=== PATIENT | female | born 1975 | race Caucasian/White ===

== ENCOUNTER 2017-08-21 08:48 | Outpatient (CLI) | payer BC | END 2017-08-21 08:49 | disposition home or self-care (01) | LOC: BICMAMMO 08:48 | PROVIDERS: ATTEND Obstetrics & Gynecology | DX: Z12.31 Encounter for screening mammogram for malignant neoplasm of breast (principal) | CPT/HCPCS: 77063; 77067 ==

== ENCOUNTER 2018-05-31 08:37 | Day surgery (SDC) | payer BC ==
[2018-05-28 13:59] VITALS: BMI 26.6
[2018-05-31 09:33] LABS: #Eosinphils 0.3 thou/uL (0.0-0.7); #Lymphocytes 1.5 thou/uL (1.20-3.40); #Monocytes 0.6 thou/uL (0.11-0.59); #Neutrophils 5.7 thou/uL (1.40-6.50); %Basophils 0.5 % (0.0-1.0); %Eosinophils 3.8 % (0.0-10.0); %Lymphocytes 18.4 % (21.0-51.0); %Monocytes 7.4 % (0.0-10.0); %Neutrophils 69.9 % (42.0-75.0); Hemoglobin 13.8 g/dL (12.0-16.0); Mean Corpuscular HGB CONC 31.7 g/dL (32.0-36.0); Mean Corpuscular Hemoglobin 28.5 pg (27.0-31.0); Mean Corpuscular Volume 89.9 fL (78.0-98.0); Mean Platelet Volume 6.9 fL (7.4-10.4); Platelet Count 249 thou/uL (130-400); RBC Distribution Width 12.5 % (11.5-14.5); Red Blood Cell (RBC) Count 4.83 mill/uL (4.20-5.40); White Blood Cell (WBC) Count 8.1 thou/uL (4.8-10.8)
[2018-05-31] MEDS ORDERED: Fentanyl 100 MCG/2 ML VIAL ONE ×2 (09:49→12:30)
[2018-05-31] MEDS ORDERED: Midazolam HCl 2 mg/2 ml Vial ONE (09:49)
[2018-05-31 09:54] LABS: Anion Gap 13 mmol/L (10-20); BUN (Urea Nitrogen) 15 mg/dL (7.0-18.7); Calc. Creatinine Clearance 129 mL/min (70-130); Calcium 9.2 mg/dL (7.8-10.44); Carbon Dioxide 24 mmol/L (22-29); Chloride 106 mmol/L (98-107); Estimated GFR-MDRD Greater than 90; Glucose 96 mg/dL (70-105); Potassium 4.8 mmol/L (3.5-5.1); Sodium 138 mmol/L (136-145)
[2018-05-31] MEDS ORDERED: Ropivacaine 0.2% 550 ML 550 ML NERVE BLCK SCH (10:14)
[2018-05-31] MEDS ORDERED: Zolpidem Tartrate 5 MG TAB PO PRN (10:14)
[2018-05-31] MEDS ORDERED: traMADol HCl 50 MG TAB PO PRN ×2 (10:14)
[2018-05-31] MEDS ORDERED: Promethazine HCl 25 MG/ML VIAL IM PRN (10:14)
[2018-05-31] MEDS ORDERED: Ondansetron PF 4 MG/2 ML Vial IVP PRN (10:14)
[2018-05-31] MEDS ORDERED: Ketorolac Tromethamine 30 MG/ML VIAL IVP PRN (10:14)
[2018-05-31] MEDS ORDERED: Fentanyl 100 MCG/2 ML VIAL IV PRN (10:18)
[2018-05-31] MEDS ORDERED: Meperidine HCl/PF 25 MG/ML VIAL ONE (14:36)
[2018-05-31] MEDS ORDERED: Ropivacaine 0.5% HCl/PF (150 MG/30 ML VIAL) ONE (14:46)
[2018-05-31] MEDS ORDERED: Dexamethasone 20 MG/5 ML VIAL ONE (15:18)
[2018-05-31] MEDS ORDERED: Ondansetron PF 4 MG/2 ML Vial ONE (15:18)
[2018-05-31] MEDS ORDERED: Ketorolac Tromethamine 30 MG/ML VIAL ONE (15:18)
[2018-05-31] MEDS ORDERED: Lidocaine 1% PF 5 ML VIAL ONE (15:18)
[2018-05-31] MEDS ORDERED: Rocuronium Bromide 10 MG/ML (10ML VIAL) ONE (15:18)
[2018-05-31] MEDS ORDERED: PROPOFOL 200 MG/20 ML VIAL ONE (15:18)
[2018-05-31] MEDS ORDERED: traMADol HCl 50 MG TAB ONE (15:51)
--- NOTE | 2018-06-01 10:38 | OP ---
DATE OF PROCEDURE: 05/31/2018 PREOPERATIVE DIAGNOSIS: Left knee status post patellar dislocation and injury to the MCL. POSTOPERATIVE DIAGNOSIS: Left knee status post patellar dislocation and injury to the MCL. PROCEDURES PERFORMED: 1. Left knee arthroscopy with removal of loose bodies. 2. Open repair of medial patellofemoral ligament and medial retinaculum onto the patella. 3. Open repair of superficial medial collateral ligament and posteromedial capsule on the femur. RELIGION PROFESSOR: Josemanuel Pat PA-C. BLOOD LOSS: Minimal. COMPLICATIONS: None. ANESTHESIA: She did have a general anesthetic. She also had a block. IMPLANTS: We used a two small titanium anchors into the patella to repair the medial patellofemoral ligament and we used a 4.75 BioComposite SwiveLock device with sutures to repair the superficial MCL and the posteromedial capsule. DISPOSITION: She did go to recovery room in stable condition. INDICATIONS: A 43-year-old female, who had an event where she dislocated her patella and this occurred on Thursday. I saw the patient on Thursday and evaluated the leg. We obtained an MRI scan, which showed her to have significant injury from her dislocation with multiple loose bodies in the joint as well as what appeared to be trauma to the medial patellofemoral ligament on the femur as well as the patella and then a full-thickness injury to the medial collateral off the femur approximately as well. DESCRIPTION OF PROCEDURE: After all verbal consent forms were explained and signed, she was taken to the operative room and at this time was given general anesthetic. Once the level of anesthesia was appropriate, exam under anesthesia commenced and she had increased laxity to a valgus stress compared to the other side, but did not open or have any count puckering noted. This was felt to be secondary to the deep MCL being intact. The patient did have a subluxatable patella. Tourniquet was then placed on the left thigh. Leg was placed in arthroscopic leg monzon. It was then prepped and draped in standard surgical fashion. The limb was exsanguinated and then tourniquet was taken up to 300 mmHg. Inferolateral portal was established. Scope was placed into the knee joint. We then spent a couple of minutes washing out all the blood from the trauma in order to be able to visualize inside the knee joint. A medial working portal was then made using a needle localization technique. We then went to the notch. The ACL and PCL were probed, found to be intact. Medial compartment was intact. The lateral compartment showed some significant fissuring of the lateral tibial plateau and some cartilaginous loose bodies were also noted in the lateral compartment. These were removed. No other treatment was needed. Popliteus tendon was intact. The trochlea was in pretty good condition. The patella obviously has an area of hemorrhage on the distal and distal medial aspect of the patella, and there were multiple cartilaginous and bony loose bodies. The loose pieces were removed with a grasper and shaver. We then placed the needle to porfirio the area of injury. Over the lateral femoral condyle, significant trauma was noted with an impaction fracture and hematoma was removed with to make sure there were no bony loose bodies. Once this was done, we then removed the scope and drained the knee. We then made a longitudinal incision just where our needle had marked the area of injury for the patella. We went down through skin and subcutaneous tissue. The Bovie was used to clean any brisk venous bleeding. We then went underneath our fascia, go into our layer of the medial patellofemoral ligament, noted hemorrhage and also noted that we medially were into the joint as well as the capsule was disrupted. At this time, we were able to freshen up the area of insertion on the patella. We then found a large bony piece still attached to the retinaculum off the inferior aspect of the patella and we also found our medial patellofemoral ligament. By pulling traction on the medial patellofemoral ligament in this area, we were then able to palpate the ligament all the way to its insertion onto the femur. A needle was then used to porfirio this area. At this time, we then placed two small titanium anchors, one for insertion of the MPFL, the second to perform a repair almost as a bony Bankart to pull this piece of bone back to the inferior aspect of the patella. We did not tie these at this time. We then made a second longitudinal incision more medial with a second needle in place down through skin and subcutaneous tissue. Again, the Bovie was used to coagulate any brisk venous bleeding. This is an area of the adductor tubercle. Once we got down through the fascia, we were able to see the area of injury. A palpable lump was noted just distal to this. This was opened up superior to be superficial medial collateral ligament as well as posterior to this, some capsule from the back of the knee. Some traction sutures were pulled on knees and indeed this did help our valgus stability. At this time, we decided to repair this by drilling, tapping, and placing 4.75 BioComposite SwiveLock and using good two sets associated sutures to repair our tissue. The varus stress was placed. The knee in essentially full extension while doing this. Once this was done, we then tied our two previously placed patellar sutures and we then took the knee through range of motion. The patella tracked very nicely. No longer was able to be pushed over laterally. We were able to get over 100 degrees of flexion without any significant tightness or stiffness and we were happy with our repairs. Again, the medial collateral ligament was also tested and was felt to be at this time equal to the opposite side. We therefore thoroughly irrigated these wounds. We then closed in multiple layers including the fascia followed by 2-0 and then sutures to close the multiple skin incisions and portal sites. Bulky sterile dressing was applied. The patient was then awakened and she was taken to recovery room in stable condition. All counts were correct at the end of the case. She did receive preoperative IV antibiotics. Job ID: [id number]
--- NOTE | 2018-06-01 15:46 | EKG ---
Test Reason : PREOP Blood Pressure : / mmHG Vent. Rate : 072 BPM Atrial Rate : 072 BPM P-R Int : 154 ms QRS Dur : 082 ms QT Int : 380 ms P-R-T Axes : 049 052 038 degrees QTc Int : 416 ms Normal sinus rhythm Normal ECG No previous ECGs available Confirmed by MASOUD KAY ([id number]) on 06/01/2018 3:46:00 PM Referred By: FANY Confirmed By:MASOUD KAY
== END 2018-05-31 17:30 | disposition home or self-care (01) ==
LOC: SDC 08:37
PROVIDERS: ATTEND Orthopaedic Surgery
PROC: 0SCD4ZZ Extirpation of Matter from Left Knee Joint, Percutaneous Endoscopic Approach (ICD-10-PCS; principal; 2018-05-31)
PROC: 0MQP0ZZ Repair Left Knee Bursa and Ligament, Open Approach (ICD-10-PCS; principal; 2018-05-31)
DX: S83.412A Sprain of medial collateral ligament of left knee, initial encounter (principal); Z88.5 Allergy status to narcotic agent
CPT/HCPCS: 80048; 85025; 93005; 93010; A4306; C1713; J1100; J1885; J2001; J2175; J2250; J2405; J2704; J2795; J3010; L1830

== ENCOUNTER 2018-08-13 08:47 | Observation (INO) | payer BC ==
[2018-08-12 13:39] VITALS: BMI 26.6
[2018-08-13 09:33] LABS: #Eosinphils 0.2 thou/uL (0.0-0.7); #Lymphocytes 1.7 thou/uL (1.20-3.40); #Monocytes 0.4 thou/uL (0.11-0.59); #Neutrophils 3.7 thou/uL (1.40-6.50); %Basophils 0.4 % (0.0-1.0); %Monocytes 7.1 % (0.0-10.0); %Neutrophils 61.6 % (42.0-75.0); Hemoglobin 14.4 g/dL (12.0-16.0); Mean Corpuscular HGB CONC 33.1 g/dL (32.0-36.0); Mean Corpuscular Hemoglobin 29.6 pg (27.0-31.0); Mean Corpuscular Volume 89.2 fL (78.0-98.0); Mean Platelet Volume 7.1 fL (7.4-10.4); Platelet Count 237 thou/uL (130-400); RBC Distribution Width 12.4 % (11.5-14.5); Red Blood Cell (RBC) Count 4.87 mill/uL (4.20-5.40); White Blood Cell (WBC) Count 5.9 thou/uL (4.8-10.8)
[2018-08-13] MEDS ORDERED: Midazolam HCl 2 mg/2 ml Vial ONE (09:38)
[2018-08-13] MEDS ORDERED: Fentanyl 100 MCG/2 ML VIAL ONE ×3 (09:38→11:13)
[2018-08-13] MEDS ORDERED: Ropivacaine 0.2% HCl/PF 20 ML ONE (09:46)
[2018-08-13 09:54] LABS: Anion Gap 12 mmol/L (10-20); BUN (Urea Nitrogen) 15 mg/dL (7.0-18.7); Calc. Creatinine Clearance 129 mL/min (70-130); Calcium 9.4 mg/dL (7.8-10.44); Carbon Dioxide 26 mmol/L (22-29); Chloride 106 mmol/L (98-107); Estimated GFR-MDRD Greater than 90; Glucose 97 mg/dL (70-105); Potassium 5.2 mmol/L (3.5-5.1); Sodium 139 mmol/L (136-145)
[2018-08-13] MEDS ORDERED: diphenhydrAMINE 50 MG/ML VIAL IVP PRN (10:15)
[2018-08-13] MEDS ORDERED: Zolpidem Tartrate 5 MG TAB PO PRN (10:15)
[2018-08-13] MEDS ORDERED: diphenhydrAMINE 50 MG/ML VIAL IM PRN (10:15)
[2018-08-13] MEDS ORDERED: Hydrocerin (Eucerin) Cream 120 gm Jar TOP PRN (10:15)
[2018-08-13] MEDS ORDERED: Ondansetron PF 4 MG/2 ML Vial IVP PRN (10:15)
[2018-08-13] MEDS ORDERED: Promethazine HCl 25 MG/ML VIAL IM PRN ×2 (10:15→11:15)
[2018-08-13] MEDS ORDERED: Naloxone HCl 0.4 mg/ml Vial IVP PRN (10:15)
[2018-08-13] MEDS ORDERED: Bupivacaine 0.25% 10 ML VIAL EPIDURAL PRN (10:15)
[2018-08-13] MEDS ORDERED: Naloxone HCl 0.4 mg/ml Vial IV PRN (10:15)
[2018-08-13] MEDS ORDERED: fentaNYL Citrate/PF 500 MCG, Bupivacaine 10 ML in Sodium Chloride 0.9% 80 ML EPIDURAL SCH (10:15)
[2018-08-13] MEDS ORDERED: HYDROcodone/Acetaminophen 5/325 mg Tablet PO PRN ×2 (10:15)
[2018-08-13] MEDS ORDERED: Promethazine HCl 25 MG SUPP PR PRN (10:15)
[2018-08-13] MEDS ORDERED: traMADol HCl 50 MG TAB PO PRN ×2 (10:15)
[2018-08-13] MEDS ORDERED: PROPOFOL 200 MG/20 ML VIAL ONE (10:41)
[2018-08-13] MEDS ORDERED: Glycopyrrolate 0.2 MG/ML 5 ML SYRINGE ONE (10:41)
[2018-08-13] MEDS ORDERED: Ondansetron PF 4 MG/2 ML Vial ONE (10:41)
[2018-08-13] MEDS ORDERED: Rocuronium Bromide 10 MG/ML (10ML VIAL) ONE (10:41)
[2018-08-13] MEDS ORDERED: Lidocaine 1% PF 5 ML VIAL ONE (10:41)
[2018-08-13] MEDS ORDERED: SUGAMMADEX SODIUM 200 MG/2 ML VIAL ONE (10:49)
[2018-08-13] MEDS ORDERED: Promethazine HCl 25 MG/ML VIAL SLOW IVP PRN (11:15)
[2018-08-13] MEDS ORDERED: Ondansetron HCl/PF 4 MG/2 ML Vial IVP PRN (11:15)
[2018-08-13] MEDS ORDERED: Meperidine HCl/PF 25 MG/ML VIAL ONE (11:18)
--- NOTE | 2018-08-13 12:17 | OP ---
DATE OF PROCEDURE: 08/13/2018 PREOPERATIVE DIAGNOSES: Arthrofibrosis left knee, status post repair of medial collateral ligament and medial patellofemoral ligament. POSTOPERATIVE DIAGNOSES: Arthrofibrosis left knee, status post repair of medial collateral ligament and medial patellofemoral ligament. PROCEDURE PERFORMED: Left closed knee manipulation. SURGEON: Levi Sanabria M.D. INSURANCE INVESTIGATOR: None. BLOOD LOSS: Minimal. COMPLICATIONS: None. ANESTHESIA: She did have a general anesthetic as well as an epidural. DISPOSITION: She went to recovery room in stable condition. INDICATIONS: A 43-year-old female, who is over two months out from a knee arthroscopy with an open medial patellofemoral ligament repair and an MCL repair. At this time, she has been unable to get more than 60 degrees of motion at the knee, is presenting for manipulation. DESCRIPTION OF PROCEDURE: After all appropriate consent forms were explained and signed, she was taken back to the operating room and at this time was given general anesthetic. Once the level of anesthesia was appropriate and the patient was fully paralyzed, we measured the knee, it was about 0 to 60. At this time, we very slowly and very judiciously started to apply some pressure around the proximal tibia with the hip flexed up so as to not break anything. There were multiple giving way feelings and sensations, however, we were able to initially get to 90, followed by 120, and followed by over 140. The knee was put through multiple ranges of motion from 0 to 140. The patella was still stable, was unable to be pushed out laterally and the MCL was tight in full extension as well as 30 degrees of flexion. At this time, the patient was awakened, taken to recovery room in stable condition. Job ID: [id number] [facility]
[2018-08-13] MEDS: Sodium Chloride 0.9% 1,000 ML IV SCH ×2 (13:15→22:46)
[2018-08-13] MEDS: Ketorolac Tromethamine 30 MG/ML VIAL IVP SCH ×2 (13:40→17:06)
[2018-08-13] MEDS: diphenhydrAMINE 25 MG CAP PO PRN (17:06)
[2018-08-13] MEDS: CeleCOXIB 100 MG CAP PO SCH (20:15)
[2018-08-13] MEDS: Gabapentin 300 MG CAP PO SCH (20:15)
[2018-08-14] MEDS: Ketorolac Tromethamine 30 MG/ML VIAL IVP SCH ×2 (00:09→06:27)
[2018-08-14] MEDS: diphenhydrAMINE 25 MG CAP PO PRN (02:40)
[2018-08-14] MEDS: Sodium Chloride 0.9% 1,000 ML IV SCH (07:14)
[2018-08-14] MEDS: Gabapentin 300 MG CAP PO SCH (08:25)
[2018-08-14] MEDS: CeleCOXIB 100 MG CAP PO SCH (08:25)
[2018-08-14 08:46] VITALS: BP 109/72; TEMP 98.4
== END 2018-08-14 10:50 | disposition home or self-care (01) ==
LOC: SDC 08:47 → SJJU 12:34
PROVIDERS: ADMIT Orthopaedic Surgery; ATTEND Orthopaedic Surgery
PROC: 0SNDXZZ Release Left Knee Joint, External Approach (ICD-10-PCS; principal; 2018-08-13)
DX: M24.662 Ankylosis, left knee (principal); Z79.899 Other long term (current) drug therapy; Z88.5 Allergy status to narcotic agent; Z98.890 Other specified postprocedural states
CPT/HCPCS: 80048; 85025; 96374; 96376; G0378; J0690; J1885; J2001; J2175; J2250; J2405; J2704; J2795; J3010; J3490; Q0163

== ENCOUNTER 2018-09-21 13:36 | Outpatient (CLI) | payer BC ==
--- NOTE | 2018-09-21 15:30 | MMO ---
Bilateral MAMMO Bilat Screen [facility]. CLINICAL HISTORY: Patient is 43 years old and is seen for screening. The patient has no family history of breast cancer. The patient has no personal history of cancer. VIEWS: The views performed were: bilateral craniocaudal with tomosynthesis and bilateral mediolateral oblique with tomosynthesis. FILMS COMPARED: The present examination has been compared to prior imaging studies performed at [facility] on 12/08/2006, 07/25/2016 and 08/21/2017, and at [facility] on 04/06/2012. MAMMOGRAM FINDINGS: The breasts are heterogeneously dense, which could obscure a lesion on mammography. There are no suspicious masses, suspicious calcifications, or new areas of architectural distortion. IMPRESSION: THERE IS NO MAMMOGRAPHIC EVIDENCE OF MALIGNANCY. A ROUTINE FOLLOW-UP MAMMOGRAM IN 1 YEAR IS RECOMMENDED. THE RESULTS OF THIS EXAM WERE SENT TO THE PATIENT. ACR BI-RADS Category 1 - Negative MAMMOGRAPHY NOTE: 1. A negative mammogram report should not delay a biopsy if a dominant of clinically suspicious mass is present. 2. Approximately 10% to 15% of breast cancers are not detected by mammography. 3. Adenosis and dense breasts may obscure an underlying neoplasm.
== END 2018-09-21 13:37 | disposition home or self-care (01) ==
LOC: BICMAMMO 13:36
PROVIDERS: ATTEND Nurse Practitioner Family
DX: Z12.31 Encounter for screening mammogram for malignant neoplasm of breast (principal)
CPT/HCPCS: 77063; 77067

== ENCOUNTER 2019-09-27 11:48 | Outpatient (CLI) | payer BC ==
--- NOTE | 2019-09-27 13:30 | MMO ---
Bilateral MAMMO Bilat Screen [facility]. CLINICAL HISTORY: Patient is 44 years old and is seen for screening. The patient has no family history of breast cancer. The patient has no personal history of cancer. VIEWS: The views performed were: bilateral craniocaudal with tomosynthesis and bilateral mediolateral oblique with tomosynthesis. FILMS COMPARED: The present examination has been compared to prior imaging studies performed at [facility] on 07/25/2016, 08/21/2017 and 09/21/2018, and at [facility] on 04/06/2012. This study has been interpreted with the assistance of computer-aided detection. MAMMOGRAM FINDINGS: The breasts are heterogeneously dense, which could obscure a lesion on mammography. There are no suspicious masses, suspicious calcifications, or new areas of architectural distortion. IMPRESSION: THERE IS NO MAMMOGRAPHIC EVIDENCE OF MALIGNANCY. A ROUTINE FOLLOW-UP MAMMOGRAM IN 1 YEAR IS RECOMMENDED. THE RESULTS OF THIS EXAM WERE SENT TO THE PATIENT. ACR BI-RADS Category 1 - Negative MAMMOGRAPHY NOTE: 1. A negative mammogram report should not delay a biopsy if a dominant of clinically suspicious mass is present. 2. Approximately 10% to 15% of breast cancers are not detected by mammography. 3. Adenosis and dense breasts may obscure an underlying neoplasm. Reported by: MERLE GAMING MD Electonically Signed: [id number]
== END 2019-09-27 11:49 | disposition home or self-care (01) ==
LOC: BICMAMMO 11:48
PROVIDERS: ATTEND Obstetrics & Gynecology
DX: Z12.31 Encounter for screening mammogram for malignant neoplasm of breast (principal)
CPT/HCPCS: 77063; 77067

== ENCOUNTER 2020-09-28 14:32 | Outpatient (CLI) | payer BC | END 2020-09-28 14:33 | disposition home or self-care (01) | LOC: BICMAMMO 14:32 | PROVIDERS: ATTEND Obstetrics & Gynecology | DX: Z12.31 Encounter for screening mammogram for malignant neoplasm of breast (principal) | CPT/HCPCS: 77063; 77067 ==

== ENCOUNTER 2021-11-15 13:41 | Outpatient (CLI) | payer BC | END 2021-11-15 13:42 | disposition home or self-care (01) | LOC: BICMAMMO 13:41 | PROVIDERS: ATTEND Obstetrics & Gynecology | DX: Z12.31 Encounter for screening mammogram for malignant neoplasm of breast (principal) | CPT/HCPCS: 77063; 77067 ==

== ENCOUNTER 2023-01-01 12:42 | Outpatient (CLI) | payer BC | END 2023-01-01 12:43 | disposition home or self-care (01) | LOC: BICMAMMO 12:42 | PROVIDERS: ATTEND Obstetrics & Gynecology | DX: Z12.31 Encounter for screening mammogram for malignant neoplasm of breast (principal) | CPT/HCPCS: 77063; 77067 ==

== ENCOUNTER 2024-01-04 11:22 | Outpatient (CLI) | payer BC | END 2024-01-04 11:23 | disposition home or self-care (01) | LOC: BICMAMMO 11:22 | PROVIDERS: ATTEND Obstetrics & Gynecology | DX: Z12.31 Encounter for screening mammogram for malignant neoplasm of breast (principal) | CPT/HCPCS: 77063; 77067 ==

== ENCOUNTER 2025-01-02 12:31 | Outpatient (CLI) | payer BC | END 2025-01-02 12:32 | disposition home or self-care (01) | LOC: BICMAMMO 12:31 | PROVIDERS: ATTEND Obstetrics & Gynecology | DX: Z12.31 Encounter for screening mammogram for malignant neoplasm of breast (principal) | CPT/HCPCS: 77063; 77067 ==